=== PATIENT | female | born 2000 | race Caucasian/White ===

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

== ENCOUNTER 2018-08-18 17:01 | Emergency (ER) | payer OTHER ==
[2018-08-18 17:15] VITALS: BP 127/78
--- NOTE | 2018-08-18 17:20 | UC ---
Neck Pain HPI - HPI Summary HPI Summary: 18 y/o female presents to the urgent care c/o left arm pain, intermittent neck pain and left hand numbness. Took Ibuprofen 400 at 1500. - History of Current Complaint Chief Complaint: UCUpperExtremity Stated Complaint: NECK PAIN Time Seen by Provider: 08/18/18 17:16 Hx Obtained From: Patient Hx Last Menstrual Period: 1 week ?: No - Pt declines test Pain Intensity: 8 - Allergies/Home Medications Allergies/Adverse Reactions: Allergies Allergy/AdvReac Type Severity Reaction Status Date / Time No Known Allergies Allergy Verified 08/18/18 17:16 PMH/Surg Hx/FS Hx/Imm Hx - Surgical History Surgical History: Yes Surgery Procedure, Year, and Place: UVALDO REMOVE AGE 2; MICHELLE IUD( CONDITIONAL 5 UP TO 3T)CONDITIONS FOLLOWS: 36,000GAUSS/CM OR LESS, WHOLE BODY TITUS 4W/KG IN FIRST LEVEL FOR 15 MINUTES OF SCANNING: SCANNED INTO "OTHER FACILITIES OPERATIVE REPORTS" - Family History Known Family History: Positive: Unknown - adopted Family History: no known family history of cardio-vascular or bleeding disorders - Social History Alcohol Use: None Substance Use Type: None Smoking Status (MU): Light Every Day Tobacco Smoker Type: Cigarettes Household Exposure Type: Cigarettes - Immunization History Most Recent Influenza Vaccination: 08/15/16 Vaccination Up to Date: Yes Physical Exam - Summary Physical Exam Summary: Vital signs:reviewed General: Patient is a well developed male without any distress that is laying comfortably in the examining table w/o any apparent distress. Skin: [place], warm, dry HEAD AND FACE: No signs of trauma. EYES: PERRLA, EOMI x 2. EARS: Hearing grossly intact. MOUTH: Oropharynx within normal limits. NECK: Supple, trachea is midline, no cervical lymphadenopathy, no JVD, no carotid bruit, no c-spine tenderness, neck with decreased ROM on flexion and Rt lateral bending due to pain. No meningeal signs, no Kernig's or brudzinski's signs. Decrease ROM on bending forward and Rt lateral bending due to pain. CHEST: Symmetric, no tenderness at palpation LUNGS: CTA bilaterally, no rales, rhonchi or wheezing CVS: RRR, no murmur, rub, or gallop ABDOMEN: soft and Nontender without masses, no guarding or rebound. Bowel sounds are active. No Hepato-splenomegaly. No signs of inguinal hernias. BACK: Patient walked into the urgent care room with symmetric ambulation, No signs of limping, antalgic, able to bear weight. No signs of trauma, no soft tissue or muscle tenderness, RT side upper back spasm in the Paraspinal muscles of the T3-T4. No masses palpated. Point tenderness at Rt shoulder blade, no swelling or ecchymosis observed, No CVAT, no flank ecchymosis . No sacroiliac notch tenderness, No saddle anesthesia.FROM: flexion/ extension/ lateral bending and rotation, note if limited or causes pain Straight Leg Raise: negative.Patellar reflexes: brisk, symmetric Muscle strength lower extremities. Dorsiflexion/ plantar flexion of ankles. Heel/ toe walk Lower extremities: Femoral, popliteal, posterior tibial, and dorsalis pedis pulses with in normal, Neurological: WNL Psychological: WNL Skin: dry and warm Triage Information Reviewed: Yes Vital Signs: Initial Vital Signs Temp 98 F 08/18/18 17:07 Pulse 100 08/18/18 17:07 Resp 16 08/18/18 17:07 BP 127/78 08/18/18 17:07 Pulse Ox 100 08/18/18 17:07 Neck Pain Course/Dx - Differential Dx/Diagnosis Differential Dx/HQI/PQRI: Cervical Fracture, Dislocation, Sprain, Strain, Torticollis Provider Diagnosis: Acute neck pain, Neck muscle spasm, Radial styloid tenosynovitis [de quervain] Discharge - Sign-Out/Discharge Documenting (check all that apply): Patient Departure - d/c home All imaging exams completed and their final reports reviewed: Yes - Discharge Plan Condition: Stable Disposition: HOME Prescriptions: Cyclobenzaprine TAB* [Flexeril 10 MG TAB*] 10 mg PO TID PRN #21 tab PRN Reason: Spasms - Muscle methylPREDNISolone [Medrol Dosepak 4 MG*] 4 mg PO .SEE ARTURO INSTRUCTION #1 arturo Patient Education Materials: De Quervain Disease (ED), Muscle Spasm (ED) Forms: *Work Release Referrals: Cheryl Hernandez MD [Primary Care Provider] - 2 Days Cherie Chavez Ae RN [Registered Nurse] - 1 Day Additional Instructions: 1- Please take Ibuprofen PO q6-8hrs prns as directed after meals for pain. Take Medrol dose arturo to alleviate symptoms 2- Take Flexeril PO as directed for muscle spasm. Please do not drive while taking the medication. 3- Wear the soft collar to alleviate symptoms. Avoid strenuous exercise or heavy lifting. 4- Please call Spinal Nurse Navigator: Jill Chavez: [phone] for further management of your Degenerative disc disease and herniated discs. 5-Please apply ice, keep your wirst immobilized with the splint. Avoid heavy lifting or strenuous exercise 6- Please follow up with Orthopedic Dr Ibarra in 1 week if not improvement of symptoms or your RT wrist , for further management. - Billing Disposition and Condition Condition: STABLE Disposition: Home
[2018-08-18] MEDS ORDERED: Acetaminophen TAB* 325 MG PO ONE (17:50)
[2018-08-18] MEDS ORDERED: Cyclobenzaprine TAB* 10 MG PO ONE (18:35)
== END 2018-08-18 19:04 | disposition home or self-care (01) ==
LOC: UCEAST 17:01
DX: M62.830 Muscle spasm of back (principal); M65.4 Radial styloid tenosynovitis [de Quervain]; F17.210 Nicotine dependence, cigarettes, uncomplicated
CPT/HCPCS: 72050; 99213; A9270-GY; G0463